=== PATIENT | female | born 1950 | race Caucasian/White ===

== ENCOUNTER 2017-08-31 08:02 | Emergency (ER) | payer MEDICARE, OTHER ==
[2017-08-31 08:16] VITALS: BMI 25.0
[2017-08-31 08:21] VITALS: PULSE 78; TEMP 98.6; O2SAT 100
--- NOTE | 2017-08-31 08:53 | C.PDOC ---
History Of Present Illness 67 y/o F p/w multiple complaints: 1. "It tastes like an infection in my mouth" x months. Patient has been seen for this before at a clinic, given some medication and told that perhaps it is allergies. She has had it multiple times in the past as well and it has resolved before and has now been present for the last 2 months or so. She denies fever, drooling, sore throat, vomiting, dyspnea. 2. Achy body parts including shoulders, arms, legs x 1 year. Patient has also been seen for this before and given pain medications but the pain always returns. Denies trauma, swelling, or fever. 3. A spinning sensation when she turns her head to the side intermittently, no dizziness currently. 4. Some of her hand digits have a slight flexion at the DIP and she feels some hard nodes on the palmar aspect of her MCPs which are not painful. She states that she wanted to come to the ED to get everything checked out and "see what is going on." Time Seen by Provider: 08/31/17 08:24 Chief Complaint (Nursing): ENT Problem Past Medical History Vital Signs: Last Vital Signs Temp 98.6 F 08/31/17 08:15 Pulse 78 08/31/17 08:15 Resp 20 08/31/17 08:15 BP 136/90 08/31/17 08:15 Pulse Ox 100 08/31/17 08:15 Surgical History: Tonsillectomy Family History: States: No Known Family Hx - Social History Hx Tobacco Use: No Hx Alcohol Use: No Hx Substance Use: No - Immunization History Hx Tetanus Toxoid Vaccination: No Hx Influenza Vaccination: No Hx Pneumococcal Vaccination: No Review Of Systems Except As Marked, All Systems Reviewed And Found Negative. Constitutional: Negative for: Fever Cardiovascular: Negative for: Chest Pain Physical Exam - Physical Exam Additional Physical Exam Comments: Gen: NAD Head: NC/AT Eyes: PERRL. EOMI ENT: MMM. No pharyngeal erythema or exudates. Neck: Supple. No tender lymphadenopathy. Chest: No tenderness CV: Regular rate Lungs: CTA b/l Abd: Soft, NT Back: No midline tenderness. No CVA tenderness Skin: No rash. Extremities: Nontender firm nodules at palmar MCP of R hand. Slight flexion of DIP of 2 digits on R hand with ability to fully extend Neuro: Alert, no focal deficit. Steady gait. ED Course And Treatment O2 Sat by Pulse Oximetry: 100 Medical Decision Making Medical Decision Making: I instructed patient to follow up with ENT for her BPPV and also to further evaluate throat complaint although no findings of any infection or emergent diagnosis at this time. Also recommended follow up with primary care for her general other pains. Disposition - Disposition Referrals: Paula Lin MD [Staff Provider] - Fransico Mei MD [Staff Provider] - Disposition: HOME/ ROUTINE Disposition Time: 08:56 Condition: STABLE Prescriptions: Meclizine [Antivert] 25 mg PO TID PRN #20 tab PRN Reason: Dizziness Instructions: Vertigo (a Type of Dizziness), Sore Throat, Adult (DC) - Clinical Impression Clinical Impression: BPPV (benign paroxysmal positional vertigo), Bad taste in mouth
[2017-08-31 09:07] VITALS: BP 130/70; RESP 18
== END 2017-08-31 09:07 | disposition home or self-care (01) ==
LOC: C.ER 08:02
DX: H81.10 Benign paroxysmal vertigo, unspecified ear (principal); R43.8 Other disturbances of smell and taste